=== PATIENT | female | born 1985 | race Caucasian/White ===

== ENCOUNTER 2018-04-13 23:03 | Emergency (ER) | payer MEDICAID, OTHER ==
[~2018-04-13] VITALS: Ht 167.6 cm; Wt 70.3 kg
[2018-04-13 23:22] VITALS: BP 150/67
[2018-04-14] MEDS ORDERED: IBUPROFEN 800 MG TAB PO ONE (00:45)
[2018-04-14] MEDS ORDERED: ACETAMINOPHEN 500 MG TAB PO ONE (00:45)
== END 2018-04-14 01:03 | disposition home or self-care (01) ==
LOC: ER 23:03
DX: K04.7 Periapical abscess without sinus (principal); J06.9 Acute upper respiratory infection, unspecified; Z88.0 Allergy status to penicillin; Z88.2 Allergy status to sulfonamides

== ENCOUNTER 2018-05-14 14:13 | Emergency (ER) | payer MEDICAID ==
[~2018-05-14] VITALS: Ht 167.6 cm; Wt 70.3 kg
[2018-05-14 14:38] VITALS: BP 128/44
== END 2018-05-14 17:09 | disposition home or self-care (01) ==
LOC: ER 14:14
DX: K04.7 Periapical abscess without sinus (principal); Z88.0 Allergy status to penicillin; Z88.2 Allergy status to sulfonamides; Z88.1 Allergy status to other antibiotic agents

== ENCOUNTER 2020-04-29 19:59 | Emergency (ER) | payer MEDICAID ==
[~2020-04-29] VITALS: Ht 170.2 cm; Wt 68.0 kg
[2020-04-29 20:32] VITALS: BP 116/68
== END 2020-04-29 21:00 | disposition left against medical advice (07) ==
LOC: EDUNIT# 19:59 → EDBD 19:59 → ER 20:04
DX: T40.1X1A Poisoning by heroin, accidental (unintentional), initial encounter (principal); Y92.89 Other specified places as the place of occurrence of the external cause
CPT/HCPCS: 93005

== ENCOUNTER 2022-04-21 11:20 | Emergency (ER) | payer MEDICAID ==
[~2022-04-21] VITALS: Ht 167.6 cm; Wt 81.8 kg
[2022-04-21 11:28] VITALS: BP 126/66
== END 2022-04-21 14:29 | disposition left against medical advice (07) ==
LOC: ER 11:20 → EDBD 11:20 → ER 14:29
DX: T40.411A Poisoning by fentanyl or fentanyl analogs, accidental (unintentional), initial encounter (principal); R94.31 Abnormal electrocardiogram [ECG] [EKG]; Z53.21 Procedure and treatment not carried out due to patient leaving prior to being seen by health care provider
CPT/HCPCS: 93005

== ENCOUNTER 2023-12-01 08:48 | Emergency (ER) | payer MEDICAID ==
[~2023-12-01] VITALS: Ht 167.6 cm; Wt 85.9 kg
[2023-12-01 09:49] VITALS: BP 113/61; PULSE 96; RESP 16; TEMP 98.6; O2SAT 96
[2023-12-01] MEDS ORDERED: DOXY-286 PO (10:00)
[2023-12-01] MEDS ORDERED: METH4PAK PO (10:00)
[2023-12-01] MEDS ORDERED: IBUP-1455 PO (10:00)
[2023-12-01] MEDS ORDERED: AUG875T PO (10:00)
== END 2023-12-01 10:01 | disposition left against medical advice (07) ==
LOC: ER 08:48
DX: K08.89 Other specified disorders of teeth and supporting structures (principal); Z88.0 Allergy status to penicillin; Z88.1 Allergy status to other antibiotic agents; Z88.2 Allergy status to sulfonamides; Z53.29 Procedure and treatment not carried out because of patient's decision for other reasons